=== PATIENT | male | born 1930 | race Caucasian/White ===

== ENCOUNTER → 2016-10-12 | Outpatient (CLI) | payer OTHER ==
[~2016-10-12] MED LIST: ACET-1256 PO; ATOR-14 PO; CALC-338 PO; DUTA0.5C PO; FOLI1TAB7 PO; HYDR12.56 PO; LISI-789 PO; POTA10CA28 PO; WARF-285
== END | disposition home or self-care (01) ==
LOC: C.PATHSPEC 17:10
PROVIDERS: ATTEND Urology
DX: D49.519 Neoplasm of unspecified behavior of unspecified kidney (principal); R82.99 Other abnormal findings in urine

== ENCOUNTER → 2016-10-12 | Outpatient (CLI) | payer OTHER ==
--- NOTE | 2016-10-12 12:52 | DIAGNOSTIC IMAGING REPORT ---
(RENAL)RETROPERITON COMP HISTORY: 86 years Male D49.519 Renal neoplasm follow-up COMPARISON: Renal ultrasound 10/14/2015, CT abdomen and pelvis 05/28/2012 TECHNIQUE: Multiple real-time sonographic images of the kidneys and urinary bladder were obtained assessing grayscale appearance and color flow FINDINGS: The right kidney measures 12.6 x 7.1 x 6.5 cm. Multiple cystic lesions are again seen within the right kidney, largest of which measures 2.5 x 2.5 x 3.1 cm being similar from comparison. No right-sided renal calculi or hydronephrosis are identified. The renal parenchyma is again mildly echogenic and unchanged. Left kidney measures 13.0 x 6.7 x 6.4 cm. Mass of the interpolar left kidney is again seen which appears isoechoic to renal parenchyma measuring 3.1 x 3.2 x 3.1 cm with areas of internal vascularity, previously recorded at measuring 2.8 x 2.7 x 2.8 cm. Difference in measurements likely secondary to technique. Cysts of the inferior pole left kidney are redemonstrated as well. The prostate is enlarged measuring up to 6 mm causing mass effect on the floor of the urinary bladder. Bilateral ureteral jets are documented. IMPRESSION: 1. Mass of the anterior interpolar left kidney is redemonstrated measuring up to 2.8 cm. Allowing for difference in technique, this is likely stable from comparison studies and measured 3.[address] study dated 05/28/2012. Again, this is very suspicious for renal cell carcinoma. 2. Prostamegaly. The above report was generated using voice recognition software. It may contain grammatical, syntax or spelling errors. Electronically signed by: Hakan Forde M.D. 10/12/2016 12:51 PM Dictated Date/Time: 10/12/2016 12:45 PM
== END | disposition home or self-care (01) ==
LOC: C.ULTR 11:58
PROVIDERS: ATTEND Urology
DX: D49.512 Neoplasm of unspecified behavior of left kidney (principal); N40.0 Benign prostatic hyperplasia without lower urinary tract symptoms; R82.99 Other abnormal findings in urine

== ENCOUNTER → 2017-10-11 | Outpatient (CLI) | payer OTHER ==
[~2017-10-11] MED LIST changes: -FOLI1TAB7 PO; +FOLI1TAB8 PO
--- NOTE | 2017-10-11 11:57 | DIAGNOSTIC IMAGING REPORT ---
RENAL ULTRASOUND CLINICAL HISTORY: Renal neoplasm. COMPARISON STUDY: Renal ultrasound October 12, [address] of the abdomen and pelvis May 28, 2012. TECHNIQUE: Sonography of the kidneys and the urinary bladder was performed. FINDINGS: The right kidney measures 11.8 cm in maximal dimension and the left measures 12.1 cm. There is no hydronephrosis. Several renal cysts are noted. No renal calculi are noted. There is no hydronephrosis. A 3.2 cm solid lesion within the midpole the left kidney is similar to exam of October 12, 2016 when allowing for measurement variability. Moderate renal cortical thinning is noted. IMPRESSION: 1. No significant change in a 3.2 cm solid left renal lesion since exam of October 12, 2016. This is suspicious for renal cell carcinoma. 2. No hydronephrosis. 3. Bilateral nephrolithiasis. 4. Moderate prostate enlargement. Electronically signed by: Efren Valencia M.D. 10/11/2017 11:56 AM Dictated Date/Time: 10/11/2017 11:51 AM
== END | disposition home or self-care (01) ==
LOC: C.ULTR 10:38
PROVIDERS: ATTEND Family Medicine
DX: D49.512 Neoplasm of unspecified behavior of left kidney (principal); N20.0 Calculus of kidney